=== PATIENT | male | born 1985 | race Caucasian/White ===

== ENCOUNTER 2019-10-20 13:19 | Emergency (ER) | payer SELFPAY ==
[~2019-10-20] VITALS: Ht 182.9 cm; Wt 81.6 kg
--- NOTE | 2019-10-20 14:06 | NUR ---
THIS IS A 34 YO M W/ C/O SEIZURE AT 12:30. PT REPORTS NO HX OF SEIZURES. DRINKS 1L A DAYX2 YEARS. LAST DRINK WAS LAST NIGHT AT 1999. PT VSS, NADN. PT RESTING ON GURNEY CONNECTED TO MONITORING. IN ROOM FOR ED EVAL. SEIZURE PRECAUTIONS IN PLACE.
--- NOTE | 2019-10-20 14:18 | NUR ---
MED LIBBY FROM PHARMACY.
[2019-10-20 14:26] LABS: BASOPHILS # (AUTO) 0.07 x10^3/uL (0-0.1); BASOPHILS % (AUTO) 1 % (0-1); EOSINOPHILS # (AUTO) 0.16 x10^3/uL (0-0.4); EOSINOPHILS % (AUTO) 2 % (1-7); LYMPHOCYTES # (AUTO) 1.41 x10^3/uL (1-3.4); LYMPHOCYTES % (AUTO) 18 % (22-44); MD NO; MEAN CORPUSCULAR HEMOGLOBIN 34.4 pg (27.5-34.5); MEAN CORPUSCULAR HGB CONC 34.5 g/dL (33.2-36.2); MEAN CORPUSCULAR VOLUME 99.7 fL (81-97); MEAN PLATELET VOLUME 8.6 fL (7.4-10.4); MONOCYTES # (AUTO) 0.76 x10^3/uL (0.2-0.8); MONOCYTES % (AUTO) 10 % (2-9); NEUTROPHILS % (AUTO) 70 % (42-75); PLATELET COUNT 176 x10^3/uL (130-400); RED BLOOD COUNT 4.47 x10^6/uL (4.38-5.82); RED CELL DISTRIBUTION WIDTH 13.4 % (9.4-14.8)
[2019-10-20] MEDS ORDERED: SODIUM CHLORIDE 0.9% 1,000ML IVBOLUS ONE (14:30)
[2019-10-20] MEDS ORDERED: SODIUM CHLORIDE FLUSH 10ML SYR IVF ONE (14:30)
[2019-10-20] MEDS ORDERED: THIAMINE 100 MG in SODIUM CHLORIDE 0.9% 50 ML IVPB ONE (14:30)
[2019-10-20] MEDS ORDERED: LORazepam 2 MG/ML, 1ML IVPush PRN (14:30)
[2019-10-20] MEDS ORDERED: LORazepam 2 MG/ML, 1ML ONE (14:35)
[2019-10-20 14:38] LABS: ALANINE AMINOTRANSFERASE 73 U/L (12-78); ALBUMIN 3.4 g/dL (3.4-5.0); ANION GAP 10 mmol/L (5-15); CALCIUM 9.9 mg/dL (8.5-10.1); CHLORIDE 92 mmol/L (98-107); CREATININE 1.01 mg/dL (0.7-1.3)
[2019-10-20 14:40] LABS: ALKALINE PHOSPHATASE 139 U/L (45-117); BILIRUBIN,TOTAL 1.2 mg/dL (0.2-1.0); TOTAL PROTEIN 6.9 g/dL (6.4-8.2)
--- NOTE | 2019-10-20 14:43 | NUR ---
Break Coverage: assumed care of pt on behalf of primary RN for lunch break only. Pt has been medicated and seizure precautions in place. pt to Ct via [place]. family at bedside
[2019-10-20] MEDS ORDERED: LISI5TAB7 PO (15:11)
[2019-10-20] MEDS ORDERED: HYDR-2995 PO (15:11)
[2019-10-20] MEDS ORDERED: CETI10CA PO (15:11)
[2019-10-20] MEDS ORDERED: HYDR-3237 PO (15:11)
[2019-10-20] MEDS ORDERED: POTASSIUM CHLORIDE 20 MEQ TAB.ER.PRT ONE (15:21)
--- NOTE | 2019-10-20 15:23 | NUR ---
ALL TESTS RESULTED. PT IS UP FOR RECHECK AT THIS TIME.
[2019-10-20] MEDS ORDERED: MAGNESIUM SULFATE/D5W 100 ML IV ONE (15:30)
--- NOTE | 2019-10-20 15:39 | NUR ---
MED LIBBY FROM PHARMACY.
[2019-10-20 15:58] VITALS: BP 177/113
[2019-10-20] MEDS ORDERED: POTASSIUM CHLORIDE 20 MEQ TAB.ER.PRT PO ONE (16:00)
--- NOTE | 2019-10-20 17:07 | NUR ---
Patient given discharge instructions and they have confirmed that they understand the instructions. Patient ambulatory with steady gait.
== END 2019-10-20 17:09 | disposition home or self-care (01) ==
LOC: ED 16:15
DX: R56.9 Unspecified convulsions (principal); F10.239 Alcohol dependence with withdrawal, unspecified; R55 Syncope and collapse; R94.31 Abnormal electrocardiogram [ECG] [EKG]; Y90.0 Blood alcohol level of less than 20 mg/100 ml
CPT/HCPCS: 36415; 70450; 80053; 80307; 83690; 83735; 85025; 93005; 96361; 96365; 96368; 96375; 99285; J2060; J3411; J7030